=== PATIENT | male | born 1990 | race Hispanic/Latino ===

== ENCOUNTER 2020-06-10 06:26 | Day surgery (SDC) | payer OTHER ==
[2020-06-07] MEDS: CEFAZOLIN SODIUM 1 GM VIAL IVP SCH (11:15)
[2020-06-07 13:04] VITALS: BP 146/76
[~2020-06-10] VITALS: Ht 177.8 cm; Wt 103.9 kg
[2020-06-10] VITALS (17 sets, daily range): BP systolic 115–162; BP diastolic 61–99
[~2020-06-10 06:26] MED LIST: MVI PO
[2020-06-10] MEDS ORDERED: LACTATED RINGERS 1000ML 1,000 ML IV ONE (07:08)
[2020-06-10] MEDS ORDERED: GLYCOPYRROLATE 1 MG/5 ML SYRINGE ONE (07:19)
[2020-06-10] MEDS ORDERED: MIDAZOLAM HCL 1 MG/ML 2ML VIAL ONE (07:19)
[2020-06-10] MEDS ORDERED: LIDOCAINE PF 2% 5ML ABBOJECT ONE (07:19)
[2020-06-10] MEDS ORDERED: PROPOFOL 10 MG/ML 20ML VIAL IV ONE (07:19)
[2020-06-10] MEDS ORDERED: SUCCINYLCHOLINE CHLORIDE 20 MG/ML 10 ML VIAL ONE (07:19)
[2020-06-10] MEDS ORDERED: NEOSTIGMINE 5MG/5ML SYR IV ONE (07:20)
[2020-06-10] MEDS ORDERED: ROCURONIUM 10MG/1ML SYR 10 MG/ML ML ONE (07:20)
[2020-06-10] MEDS ORDERED: FENTANYL CITRATE PF 50 MCG/1 ML 2ML VIAL ONE (07:20)
[2020-06-10] MEDS ORDERED: BUPIVACAINE/PF 0.25% 30ML VIAL IJ ONE (08:06)
[2020-06-10] MEDS: CEFAZOLIN SODIUM 1 GM VIAL IVP SCH (08:07)
[2020-06-10] MEDS ORDERED: ONDANSETRON HCL 4 MG/2 ML VIAL ONE (08:25)
[2020-06-10] MEDS ORDERED: DEXAMETHASONE SOD PHOSPHATE 4 MG/ML 1ML VIAL ONE (08:25)
[2020-06-10] MEDS ORDERED: KETOROLAC TROMETHAMINE 30MG/ML ONE (09:14)
== END 2020-06-10 11:04 | disposition home or self-care (01) ==
LOC: DAH 06:26
PROVIDERS: ATTEND Surgery
DX: K82.4 Cholesterolosis of gallbladder (principal); E11.9 Type 2 diabetes mellitus without complications; E78.00 Pure hypercholesterolemia, unspecified; Z20.828 Contact with and (suspected) exposure to other viral communicable diseases
CPT/HCPCS: 36415; 47562; A4215; A4221; A4222; A4223; A4649 ×2; A4663; A6260; C1769 ×4; C9803; G0168; J0330; J0690; J1100; J1885; J2001; J2250; J2405; J2704; J2710; J3010; J3490 ×2; J7030; J7120; U0003